=== PATIENT | female | born 1940 | race Caucasian/White ===

== ENCOUNTER 2018-09-16 02:29 | Inpatient (IN) | payer MEDICARE, MEDICAID ==
[2018-09-16 04:01] VITALS: BP 153/78
[2018-09-16] MEDS ORDERED: Maalox 30 mL Cup PO PRN (04:15)
[2018-09-16] MEDS ORDERED: Magnesium Hydroxide (MOM) 30 mL UDC PO PRN (04:15)
[2018-09-16 07:03] LABS: CHOLESTEROL 155 mg/dL (<200); HDL -HIGH DENSITY LIPOPROTEIN 39 mg/dL (23-92); TRIGLYCERIDES 96 mg/dL (<150)
--- NOTE | 2018-09-16 09:05 | History and Physical ---
History of Present Illness - HPI Chief Complaint: psychosis HPI: 78 y/o female who was transferred from [facility] to [facility] for evaluation. Patient was noted by family members to have increased depression and had told a family friend that she no longer wanted to live anymore. She was brought to [facility] for further evaluation and treatment. Patient has a previous history of depression, anxiety, htn, hyperlipidemia. Vital Signs: Last Vital Signs Temp 98.3 F 09/16/18 05:47 Pulse 52 09/16/18 05:47 Resp 18 09/16/18 05:47 BP 123/67 09/16/18 05:47 Pulse Ox 98 09/16/18 05:47 Past Medical History Cardiovascular: Report: HTN, Hyperlipidemia Pulmonary: Report: No Pertinent Hx ANTIC[employer]ING [employer]ER: Report: No Pertinent Hx GI: Report: No Pertinent Hx Psych: Report: Anxiety, Depression Musculoskeletal: Report: No Pertinent Hx Rheumatologic: Report: No pertinent Hx Infectious Disease: Report: No Pertinent Hx Renal/: Report: No Pertinent Hx Endocrine: Report: No Pertinent Hx Dermatology: Report: No Pertinent Hx - Past Surgical History Past Surgical History: No pertinent Hx Family Medical History - Family Member Mother History Unknown: Yes Social History Smoke: No Alcohol: None Drugs: None Lives: With Family - Medications Home Medications: Home Medication Medication Instructions Recorded Type Acetaminophen [Tylenol] 650 mg PO Q4HR PRN 09/16/18 History Amlodipine Besylate [Norvasc] 2.5 mg PO DAILY 09/16/18 History Escitalopram Oxalate [Lexapro] 10 mg PO DAILY 09/16/18 History Hydrocodone/Acetaminophen [[place] 1 tab PO Q4HR PRN 09/16/18 History 7.5-325 Tablet] Lorazepam 1 mg PO BID 09/16/18 History Pantoprazole [Protonix] 40 mg PO DAILY 09/16/18 History Pravastatin Sodium 20 mg PO HS 09/16/18 History - Allergies Allergies/Adverse Reactions: Allergies Allergy/AdvReac Type Severity Reaction Status Date / Time atorvastatin Allergy Verified 09/16/18 04:00 calcium Allergy Verified 09/16/18 04:00 ciprofloxacin [From Cipro] Allergy Verified 09/16/18 04:00 codeine Allergy Verified 09/16/18 04:00 morphine Allergy Verified 09/16/18 04:00 Penicillins Allergy Verified 09/16/18 04:00 sulfamethoxazole Allergy Verified 09/16/18 04:00 [From Bactrim] trimethoprim [From Bactrim] Allergy Verified 09/16/18 04:00 Review of Systems - Review of Systems Constitutional: Report: No Significant Eyes: Report: No Significant ENT: Report: No Significant Respiratory: Report: No Significant Cardiovascular: Report: No Significant Gastrointestinal: Report: No Significant Genitourinary: Report: No Significant Musculoskeletal: Report: No Significant Skin: Report: No Significant Neurological: Report: No Significant Physical Exam - Physical Exam HEENT: Report: Ears Nose Throat within normal limits, Pharnyx within normal limits Neck: Report: Within normal limits Cardiovascular Systems: Report: +s1/s2 noted, Regular, Rate and Rhythm Abdomen: Report: Non-tender to palpation, Tender to palpation Back: Report: Inspection of back is within normal limits. Extremities: Report: Non-tender to palpation. Skin: Report: Color of skin is within normal limits Neuro/Psych: Report: Mood affect is within normal limits - Lab Results All Lab Results last 24 hours: Laboratory Results - last 24 hr 09/16/18 09/16/18 03:42 06:00 POC Glucose 103 Triglycerides 96 Cholesterol 155 LDL Cholesterol Direct 96 HDL Cholesterol 39 - Assessment Assessment: psychosis hypertension hyperlipidemia - Plan Plan: continue current treatment.
[2018-09-16] MEDS ORDERED: ACETAMINOPHEN PO PRN (20:22)
[2018-09-16] MEDS ORDERED: HYDROCODONE PO PRN (20:22)
[2018-09-16] MEDS ORDERED: Hydrocodone/APAP 5mg/325mg Tab PO PRN (20:26)
[2018-09-16 21:59] LABS: CHOLESTEROL 154 mg/dL (<200); HDL -HIGH DENSITY LIPOPROTEIN 41 mg/dL (23-92); TRIGLYCERIDES 96 mg/dL (<150)
--- NOTE | 2018-09-16 23:53 | Psychiatric Evaluation ---
DATE OF SERVICE: 09/16/2018 IDENTIFYING DATA: The patient is a 78-year-old living with her family. Information obtained by directly interviewing the patient as well as reviewing the admission papers and they are reliable. JUSTIFICATION OF HOSPITALIZATION: The patient is admitted on 5150 as a danger to self. CHIEF COMPLAINT: "I was feeling depressed because my was in the hospital, but I never wanted to kill myself. They are making a mistake." HISTORY OF PRESENT ILLNESS: This is a first psychiatric hospitalization to the [facility] for this patient who is known to me from the outpatient treatment. The patient has been diagnosed to have major depressive disorder with anxiety symptoms and has been followed up by me for the past couple of years. The patient is reporting that she fell down and sustained injury to her shoulder and she was in the hospital for a couple of months. The patient is stating that lately she has been feeling frustrated with her being in the hospital and could not figure it out what she could do and she has reported to have mentioned that she wanted to end her life and hence the patient has been placed on 5150 and admitted over here for stabilization, but during the interview, the patient is stating that she never mentioned that she wanted to kill herself. The patient is tearful and crying. PAST PSYCHIATRIC HISTORY: Please refer to the above. MEDICAL HISTORY: Physical examination requested to be done by Dr. San. SUBSTANCE ABUSE HISTORY: None. PHYSICAL AND SEXUAL ABUSE HISTORY: None. LEGAL PROBLEMS: None at this time. STRENGTH AND ASSETS: The patient is motivated. MENTAL STATUS EXAMINATION: The patient is a 78-year-old, looking her stated age, superficially cooperative. Eye contact is noted to be poor. Mood is noted to be depressed. The patient's insight and judgment at this time are noted to be still impaired. Impulse control is noted to be limited. Coping skills are noted to be limited. The patient has been having difficult time to cope with the stress. The patient has voiced suicidal ideation, but no clear plans are voiced at this time. No homicidal ideation is noted. DIAGNOSTIC IMPRESSION: Major depressive disorder, recurrent with anxiety symptoms. PLAN: To continue the patient with the supportive therapy and followup. [facility]# [id number]
[2018-09-17] MEDS: Pantoprazole 40 mg/Packet PO SCH (06:53)
--- NOTE | 2018-09-17 08:54 | General Progress Note ---
Subjective - Review of Systems Service Date: 09/17/18 Subjective: Patient complaining of upper extremity pain. States that she takes tramadol for discomfort. Patient is otherwise awake, alert, but confused. PE VS T 97.9 P63 R19 BP 128/70 Objective - Results Recent Labs: Laboratory Last Values POC Glucose 103 MG/DL (70 - 105) 09/16/18 03:42 Triglycerides 96 mg/dL (<150) 09/16/18 09:45 Cholesterol 154 mg/dL (<200) 09/16/18 09:45 LDL Cholesterol Direct 96 mg/dL (75-193) 09/16/18 09:45 HDL Cholesterol 41 mg/dL (23-92) 09/16/18 09:45 - Physical Exam Vitals and I&O: Vital Signs Temp 97.9 F 09/17/18 06:08 Pulse 63 09/17/18 06:08 Resp 19 09/17/18 06:08 BP 128/70 09/17/18 06:08 Pulse Ox 98 09/17/18 06:08 Intake & Output 09/16/18 09/17/18 09/17/18 18:59 06:59 18:59 Intake Total 1500 480 Balance 1500 480 Intake: Oral 1500 480 Other: # Voids 3 1 # Bowel Movements 0 Active Medications: Current Medications Acetaminophen (Tylenol) 650 mg PO Q4HR PRN PRN Reason: Pain (Mild) Stop: 11/15/18 04:20 Last Admin: 09/17/18 00:47 Dose: 650 mg Al Hydrox/Mg Hydrox/Simethicone (Maalox) 30 ml PO Q4HR PRN PRN Reason: GI DISTRESS Stop: 11/15/18 04:14 Amlodipine Besylate (Norvasc) 2.5 mg PO DAILY [facility] Stop: 11/16/18 08:59 Escitalopram Oxalate (Lexapro) 10 mg PO DAILY [facility]; Protocol Stop: 11/15/18 08:59 Last Admin: 09/16/18 09:19 Dose: 10 mg Lorazepam (Ativan) 0.5 mg PO Q6HR PRN; Protocol PRN Reason: Anxiety Stop: 11/15/18 18:54 Magnesium Hydroxide (Milk Of Magnesia) 30 ml PO HS PRN PRN Reason: Constipation Pantoprazole Sodium (Protonix) 40 mg PO QDAC [facility] Stop: 11/16/18 07:29 Last Admin: 09/17/18 06:53 Dose: 40 mg Simvastatin (Zocor) 10 mg PO HS [facility] Stop: 11/16/18 20:59 Tramadol HCl (Ultram) 50 mg PO BID PRN PRN Reason: Pain (Severe) Stop: 11/16/18 08:45 Trimethoprim/Sulfamethoxazole (Bactrim Ds) 1 tab PO BID [facility] Stop: 09/24/18 08:59 Zolpidem Tartrate (Ambien) 5 mg PO HS PRN PRN Reason: Insomnia Stop: 11/15/18 04:14 Last Admin: 09/16/18 20:49 Dose: 5 mg General: Alert, No acute distress HEENT: Atraumatic, PERRLA, EOMI Neck: Supple Cardiovascular: Regular rate, Normal S1, Normal S2 Lungs: Clear to auscultation Abdomen: Bowel sounds Extremities: no Clubbing, no Cyanosis, no Edema Assessment/Plan - Assessment Assessment: psychosis hypertension hyperlipidemia shoulder pain UTI - Plan Plan: continue current treatment. add tramadol 50mg PO BID SONIYA Saavedra start on Bactrim DS
[2018-09-17] MEDS ORDERED: AMLODIPINE BESYLATE 2.5 MG PO SCH (09:00)
[2018-09-17] MEDS: Sulfamethoxazole/TMP 800/160mg Tab PO SCH ×2 (09:03→16:35)
--- NOTE | 2018-09-17 22:08 | Progress Notes ---
DATE: 09/17/2018 SUBJECTIVE: Staff was spoken to. The patient is interviewed. The patient's primary care physician, Dr. Snider has been spoken to. The patient is reported to have been using the bromazepam and reported to have fallen down and sustained injury to her right shoulder area and was in the long term facility almost for 45 days. The patient's is down with the stroke and is also locked up at [facility]. The patient has been advised to be there in a long term facility, but the patient is refusing to do so. The patient does not have any support and her son-in-law and daughter does not want to be involved with the patient's care and the patient has no other help. There is an APS report that has been generated and the patient and the casework specialist has been informed of the same and the patient has been advised to look for placement, but the patient is very reluctant to do so at this time. ASSESSMENT: The patient is still depressed. PLAN: To continue the patient with the supportive therapy, encouraged the patient to verbalize the concerns rather than to act out. JOB# [id number]
--- NOTE | 2018-09-18 01:19 | Consultation ---
DATE OF CONSULTATION: 09/17/2018 REFERRING PHYSICIAN: Nav Rodriguez MD TYPE OF CONSULTATION: Psychology. HISTORY OF PRESENT ILLNESS: The patient is a 78-year-old female. The following is by review of the medical record as well as by the patient's self-report. According to record review, the patient is being admitted on a 5150 as danger to self. The record indicates the patient had been taken to [facility] for evaluation and treatment after a fall. The patient has a history of depression and anxiety. According to the record, the patient had mentioned that she did not want to live any longer and therefore, the patient was transferred here to [facility] on the Geropsych unit. The patient is reporting that her has been in the hospital for a couple of months and she was feeling frustrated and was unable to cope and continued to live at home. She stated she was experiencing increased depression. The patient had mentioned to her friend that she wanted to end her life; however, no plan or means were stated by the patient. The patient presents with a labile mood as well as tearful. The patient is stating currently that she did not mention that she wanted to end her life and is denying any suicidal ideation, plan or intention. PAST MEDICAL HISTORY: Please see history and physical by Dr. San. PAST PSYCHIATRIC HISTORY: The patient has been under the care of Dr. Rodriguez on an outpatient basis for the last 2 years for depression. The patient has no previous psychiatric hospitalization. This is the first hospitalization for her. SUBSTANCE ABUSE HISTORY: The patient denies any history of alcohol, tobacco or illicit drug use. However, the patient was unclear about history of alcohol use and it is noted that there may have been alcohol use connected to this current hospitalization. PSYCHOSOCIAL HISTORY: The patient is and lives at home with her . The patient has no children. She did not answer questions about episcopalian affiliation or occupational or educational history. The patient continued to state that she was frustrated with her not being home since he has been hospitalized. The patient states that she had a fall at home and sustained an injury to her right shoulder. The patient expects to return home. MENTAL STATUS EXAMINATION: The patient appears to be her stated age. The patient's attitude is superficially cooperative. Eye contact is fair to poor. Speech is spontaneous. However, the patient is tearful and crying intermittently. Mood is depressed. Affect is labile. Thought process is depressogenic, however logical and linear. The patient denied any auditory or visual hallucinations or any delusions. There is no evidence of paranoid ideation. The patient denied any suicidal ideation, plan or intention. However, the record indicates the patient had mentioned to her friend that she wanted to end her life. The patient's behavior has been withdrawn on the unit. Impulse control is limited. Concentration is fair to poor. However, the patient did not follow through with serial 3 subtractions. The patient did not participate in the memory assessment. Immediate memory seems to be intact. Short term and long-term memory need further evaluation. Sensorium is alert and oriented to person and place but not date or time. The patient did not participate in the interpretation of proverbs. Insight is poor. Judgment is compromised. DIAGNOSTIC IMPRESSION: AXIS I: History of Major depressive disorder, recurrent, severe with anxiety. AXIS II: Deferred. AXIS III: Please see history and physical by Dr. San. TREATMENT PLAN: The patient has been seen by Dr. Rodriguez for psychiatric evaluation and for the management of the patient's psychotropic medications. We will provide supportive psychotherapy to include reality orientation, differentiation and integration. We will provide cognitive behavioral therapy for the patient's depression. We will encourage the patient to be able to verbalize her concerns. We will provide an anxiety reduction skill and stress management. We will encourage the patient to verbally contract for safety and no self-harm. We will provide coping strategies for phase of life issues as well. Thank you Dr. Rodriguez, for this consult and the opportunity to participate in this patient's care. JOB# [id number] MTDD
[2018-09-18] MEDS: Pantoprazole 40 mg/Packet PO SCH (06:31)
--- NOTE | 2018-09-18 08:59 | General Progress Note ---
Subjective - Review of Systems Service Date: 09/18/18 Subjective: Patient complaining of upper extremity pain. States that she takes tramadol for discomfort. Patient is otherwise awake, alert, but confused. Patient has a history of seizure disorder and is currently taking Keppra. Will add to current medication list. PE VS T 97.6 P67 R19 BP 130/75 Objective - Results Recent Labs: Laboratory Last Values POC Glucose 103 MG/DL (70 - 105) 09/16/18 03:42 Triglycerides 96 mg/dL (<150) 09/16/18 09:45 Cholesterol 154 mg/dL (<200) 09/16/18 09:45 LDL Cholesterol Direct 96 mg/dL (75-193) 09/16/18 09:45 HDL Cholesterol 41 mg/dL (23-92) 09/16/18 09:45 - Physical Exam Vitals and I&O: Vital Signs Temp 97.6 F 09/17/18 19:43 Pulse 67 09/17/18 19:43 Resp 19 09/17/18 19:43 BP 130/75 09/17/18 19:43 Pulse Ox 98 09/17/18 19:43 Active Medications: Current Medications Acetaminophen (Tylenol) 650 mg PO Q4HR PRN PRN Reason: Pain (Mild) Stop: 11/15/18 04:20 Last Admin: 09/17/18 16:35 Dose: 650 mg Al Hydrox/Mg Hydrox/Simethicone (Maalox) 30 ml PO Q4HR PRN PRN Reason: GI DISTRESS Stop: 11/15/18 04:14 Last Admin: 09/17/18 11:45 Dose: 30 ml Amlodipine Besylate (Norvasc) 2.5 mg PO DAILY [facility] Stop: 11/16/18 08:59 Last Admin: 09/17/18 09:03 Dose: 2.5 mg Escitalopram Oxalate (Lexapro) 10 mg PO DAILY ARVIN; Protocol Stop: 11/15/18 08:59 Last Admin: 09/17/18 09:04 Dose: 10 mg Levetiracetam (Keppra) 500 mg PO BID [facility] Stop: 11/16/18 12:34 Last Admin: 09/17/18 16:35 Dose: 500 mg Lorazepam (Ativan) 0.5 mg PO Q6HR PRN; Protocol PRN Reason: Anxiety Stop: 11/15/18 18:54 Last Admin: 09/17/18 11:45 Dose: 0.5 mg Magnesium Hydroxide (Milk Of Magnesia) 30 ml PO HS PRN PRN Reason: Constipation Mirtazapine (Remeron) 7.5 mg PO HS ARVIN; Protocol Stop: 11/16/18 20:59 Last Admin: 09/17/18 20:35 Dose: 7.5 mg Pantoprazole Sodium (Protonix) 40 mg PO QDAC [facility] Stop: 11/16/18 07:29 Last Admin: 09/18/18 06:31 Dose: Not Given Simvastatin (Zocor) 10 mg PO HS [facility] Stop: 11/16/18 20:59 Last Admin: 09/17/18 20:48 Dose: 10 mg Tramadol HCl (Ultram) 50 mg PO BID PRN PRN Reason: Pain (Severe) Stop: 11/16/18 08:45 Last Admin: 09/18/18 00:10 Dose: 50 mg Trimethoprim/Sulfamethoxazole (Bactrim Ds) 1 tab PO BID [facility] Stop: 09/24/18 08:59 Last Admin: 09/17/18 16:35 Dose: 1 tab Zolpidem Tartrate (Ambien) 5 mg PO HS PRN PRN Reason: Insomnia Stop: 11/15/18 04:14 Last Admin: 09/18/18 00:10 Dose: 5 mg General: Alert, No acute distress HEENT: Atraumatic, PERRLA, EOMI Neck: Supple Cardiovascular: Regular rate, Normal S1, Normal S2 Lungs: Clear to auscultation Abdomen: Bowel sounds Extremities: no Clubbing, no Cyanosis, no Edema Assessment/Plan - Assessment Assessment: psychosis hypertension hyperlipidemia shoulder pain UTI seizure disorder - Plan Plan: continue current treatment. add tramadol 50mg PO BID DC [place] start on Bactrim DS add Keppra
[2018-09-18] MEDS: Sulfamethoxazole/TMP 800/160mg Tab PO SCH ×2 (09:03→16:41)
--- NOTE | 2018-09-18 13:13 | Progress Notes ---
DATE: 09/18/2018 SUBJECTIVE: Staff was spoken to. The patient is interviewed. Mood is noted to be irritable. Affect is constricted. The patient is demanding that she should be discharged. The patient has no insight into her illness and did get to speak to the primary care physician. He is worried that the patient is going to be getting hurt and the patient has been informed on this, and the patient's wrapper caser has been informed with regards finding a high bedtime worker in-home support services for the patient and plan to discharge the patient after that. ASSESSMENT: The patient is still impulsive and depressed. PLAN: To continue the patient with the Lexapro and escitalopram, and continue the patient with the supportive therapy and followup. The patient has been provided with the option of going to the [facility] close to her . The patient has been refusing. JOB# [id number]
[2018-09-19] MEDS: Pantoprazole 40 mg/Packet PO SCH (06:42)
[2018-09-19] MEDS: Sulfamethoxazole/TMP 800/160mg Tab PO SCH ×2 (08:23→16:13)
--- NOTE | 2018-09-19 08:48 | General Progress Note ---
Subjective - Review of Systems Service Date: 09/19/18 Subjective: Patient complaining of upper extremity pain. States that she takes tramadol for discomfort. Patient is otherwise awake, alert, but confused. Patient has a history of seizure disorder and is currently taking Keppra. Will add to current medication list. PE VS T 98.1 P62 R18 BP 121/73 Objective - Results Recent Labs: Laboratory Last Values POC Glucose 103 MG/DL (70 - 105) 09/16/18 03:42 Triglycerides 96 mg/dL (<150) 09/16/18 09:45 Cholesterol 154 mg/dL (<200) 09/16/18 09:45 LDL Cholesterol Direct 96 mg/dL (75-193) 09/16/18 09:45 HDL Cholesterol 41 mg/dL (23-92) 09/16/18 09:45 - Physical Exam Vitals and I&O: Vital Signs Temp 98.1 F 09/19/18 05:00 Pulse 68 09/19/18 08:23 Resp 18 09/19/18 05:00 BP 121/73 09/19/18 08:23 Pulse Ox 96 09/19/18 05:00 Intake & Output 09/18/18 09/19/18 09/19/18 18:59 06:59 18:59 Intake Total 480 Balance 480 Intake: Oral 480 Other: # Voids 2 Active Medications: Current Medications Acetaminophen (Tylenol) 650 mg PO Q4HR PRN PRN Reason: Pain (Mild) Stop: 11/15/18 04:20 Last Admin: 09/18/18 23:52 Dose: 650 mg Al Hydrox/Mg Hydrox/Simethicone (Maalox) 30 ml PO Q4HR PRN PRN Reason: GI DISTRESS Stop: 11/15/18 04:14 Last Admin: 09/17/18 11:45 Dose: 30 ml Amlodipine Besylate (Norvasc) 2.5 mg PO DAILY [facility] Stop: 11/16/18 08:59 Last Admin: 09/19/18 08:23 Dose: 2.5 mg Escitalopram Oxalate (Lexapro) 10 mg PO DAILY [facility]; Protocol Stop: 11/15/18 08:59 Last Admin: 09/19/18 08:23 Dose: 10 mg Levetiracetam (Keppra) 500 mg PO BID [facility] Stop: 11/16/18 12:34 Last Admin: 09/19/18 08:23 Dose: 500 mg Lorazepam (Ativan) 0.5 mg PO Q6HR PRN; Protocol PRN Reason: Anxiety Stop: 11/15/18 18:54 Last Admin: 09/18/18 12:20 Dose: 0.5 mg Magnesium Hydroxide (Milk Of Magnesia) 30 ml PO HS PRN PRN Reason: Constipation Mirtazapine (Remeron) 7.5 mg PO HS [facility]; Protocol Stop: 11/16/18 20:59 Last Admin: 09/18/18 20:54 Dose: 7.5 mg Pantoprazole Sodium (Protonix) 40 mg PO QDAC [facility] Stop: 11/16/18 07:29 Last Admin: 09/19/18 06:42 Dose: 40 mg Simvastatin (Zocor) 10 mg PO HS [facility] Stop: 11/16/18 20:59 Last Admin: 09/18/18 20:54 Dose: 10 mg Tramadol HCl (Ultram) 50 mg PO BID PRN PRN Reason: Pain (Severe) Stop: 11/16/18 08:45 Last Admin: 09/18/18 16:41 Dose: 50 mg Trimethoprim/Sulfamethoxazole (Bactrim Ds) 1 tab PO BID [facility] Stop: 09/24/18 08:59 Last Admin: 09/19/18 08:23 Dose: 1 tab Zolpidem Tartrate (Ambien) 5 mg PO HS PRN PRN Reason: Insomnia Stop: 11/15/18 04:14 Last Admin: 09/18/18 20:55 Dose: 5 mg General: Alert, No acute distress HEENT: Atraumatic, PERRLA, EOMI Neck: Supple Cardiovascular: Regular rate, Normal S1, Normal S2 Lungs: Clear to auscultation Abdomen: Bowel sounds Extremities: no Clubbing, no Cyanosis, no Edema Assessment/Plan - Assessment Assessment: psychosis hypertension hyperlipidemia shoulder pain UTI seizure disorder - Plan Plan: continue current treatment. add tramadol 50mg PO BID DC [place] start on Bactrim DS add Keppra
--- NOTE | 2018-09-20 05:44 | General Progress Note ---
Subjective - Review of Systems Service Date: 09/20/18 Subjective: Patient complaining of upper extremity pain. States that she takes tramadol for discomfort. Patient is otherwise awake, alert, but confused. Patient has a history of seizure disorder and is currently taking Keppra. Will add to current medication list. PE VS T 98.2 P70 R19 BP 112/63 Objective - Results Recent Labs: Laboratory Last Values POC Glucose 103 MG/DL (70 - 105) 09/16/18 03:42 Triglycerides 96 mg/dL (<150) 09/16/18 09:45 Cholesterol 154 mg/dL (<200) 09/16/18 09:45 LDL Cholesterol Direct 96 mg/dL (75-193) 09/16/18 09:45 HDL Cholesterol 41 mg/dL (23-92) 09/16/18 09:45 - Physical Exam Vitals and I&O: Vital Signs Temp 98.2 F 09/19/18 20:00 Pulse 70 09/19/18 20:00 Resp 19 09/19/18 20:00 BP 112/63 09/19/18 20:00 Pulse Ox 97 09/19/18 20:00 Intake & Output 09/19/18 09/19/18 09/20/18 06:59 18:59 06:59 Intake Total 480 Balance 480 Intake: Oral 480 Other: # Voids 2 Active Medications: Current Medications Acetaminophen (Tylenol) 650 mg PO Q4HR PRN PRN Reason: Pain (Mild) Stop: 11/15/18 04:20 Last Admin: 09/20/18 01:15 Dose: 650 mg Al Hydrox/Mg Hydrox/Simethicone (Maalox) 30 ml PO Q4HR PRN PRN Reason: GI DISTRESS Stop: 11/15/18 04:14 Last Admin: 09/17/18 11:45 Dose: 30 ml Amlodipine Besylate (Norvasc) 2.5 mg PO DAILY [facility] Stop: 11/16/18 08:59 Last Admin: 09/19/18 08:23 Dose: 2.5 mg Escitalopram Oxalate (Lexapro) 10 mg PO DAILY [facility]; Protocol Stop: 11/15/18 08:59 Last Admin: 09/19/18 08:23 Dose: 10 mg Levetiracetam (Keppra) 500 mg PO BID [facility] Stop: 11/16/18 12:34 Last Admin: 09/19/18 16:13 Dose: 500 mg Lorazepam (Ativan) 0.5 mg PO Q6HR PRN; Protocol PRN Reason: Anxiety Stop: 11/15/18 18:54 Last Admin: 09/19/18 16:13 Dose: 0.5 mg Magnesium Hydroxide (Milk Of Magnesia) 30 ml PO HS PRN PRN Reason: Constipation Mirtazapine (Remeron) 7.5 mg PO HS [facility]; Protocol Stop: 11/16/18 20:59 Last Admin: 09/19/18 20:43 Dose: 7.5 mg Pantoprazole Sodium (Protonix) 40 mg PO QDAC [facility] Stop: 11/16/18 07:29 Last Admin: 09/19/18 06:42 Dose: 40 mg Simvastatin (Zocor) 10 mg PO HS [facility] Stop: 11/16/18 20:59 Last Admin: 09/19/18 20:43 Dose: 10 mg Tramadol HCl (Ultram) 50 mg PO BID PRN PRN Reason: Pain (Severe) Stop: 11/16/18 08:45 Last Admin: 09/19/18 22:40 Dose: 50 mg Trimethoprim/Sulfamethoxazole (Bactrim Ds) 1 tab PO BID [facility] Stop: 09/24/18 08:59 Last Admin: 09/19/18 16:13 Dose: 1 tab Zolpidem Tartrate (Ambien) 5 mg PO HS PRN PRN Reason: Insomnia Stop: 11/15/18 04:14 Last Admin: 09/19/18 20:43 Dose: 5 mg General: Alert, No acute distress HEENT: Atraumatic, PERRLA, EOMI Neck: Supple Cardiovascular: Regular rate, Normal S1, Normal S2 Lungs: Clear to auscultation Abdomen: Bowel sounds Extremities: no Clubbing, no Cyanosis, no Edema Assessment/Plan - Assessment Assessment: psychosis hypertension hyperlipidemia anxiety/depression seizure disorder right shoulder pain UTI GERD Insomnia - Plan Plan: continue current treatment. add tramadol 50mg PO BID [facility] [place] start on Bactrim DS add Keppra
[2018-09-20] MEDS: Pantoprazole 40 mg/Packet PO SCH (06:41)
[2018-09-20] MEDS: Sulfamethoxazole/TMP 800/160mg Tab PO SCH (08:26)
--- NOTE | 2018-09-20 11:06 | Progress Notes ---
DATE: 09/19/2018 SUBJECTIVE: Staff was spoken to. The patient is interviewed. Mood is noted to be irritable. Affect is constricted. The patient is very argumentative and stating that she needs to go and take care of her . The patient's coping skills at this time are noted to be very poor. No side effects to the medications are noted. ASSESSMENT: The patient is still depressed. PLAN: To continue the patient with the supportive therapy. I encouraged the patient to verbalize the concerns rather than to act out. [facility]# [id number]
--- NOTE | 2018-09-20 21:46 | Progress Notes ---
DATE: 09/20/2018 PSYCHIATRIC PROGRESS NOTE SUBJECTIVE: Staff was spoken to. The patient is interviewed. Mood is noted to be irritable. Affect is constricted. The patient is stating that she is not suicidal or homicidal. The patient is stating that her is dying with a cancer, she needs to be there by his bedside rather than being locked up in here. The patient is stating that she has a friend that can keep an eye on her. Last night, her friend, Merle, came to visit and I met with her and the friend is stating that she is going to be keeping an eye on the patient for a couple of days and the patient is also stating that she is going to be renting a room from someone and she is going to be having some company. ASSESSMENT: The patient is stabilizing, not suicidal. PLAN: To continue the patient with the supportive therapy, encouraged the patient to verbalize the concerns rather than to act out. Once the adoption social worker has been able to line up the SS worker and clear with the EPS, the patient is going to be discharged. JOB# [id number]
== END 2018-09-20 15:30 | disposition home or self-care (01) | DRG 885 ==
LOC: GERO2 02:29
PROVIDERS: ADMIT Psychiatry & Neurology Psychiatry; ATTEND Psychiatry & Neurology Psychiatry
DX: F33.2 Major depressive disorder, recurrent severe without psychotic features (principal); N39.0 Urinary tract infection, site not specified; I10 Essential (primary) hypertension; E78.5 Hyperlipidemia, unspecified; F41.9 Anxiety disorder, unspecified; F29 Unspecified psychosis not due to a substance or known physiological condition; G40.909 Epilepsy, unspecified, not intractable, without status epilepticus; K21.9 Gastro-esophageal reflux disease without esophagitis; G47.00 Insomnia, unspecified; M25.511 Pain in right shoulder; Z79.899 Other long term (current) drug therapy; Z88.5 Allergy status to narcotic agent; Z88.0 Allergy status to penicillin; Z88.2 Allergy status to sulfonamides; Z88.8 Allergy status to other drugs, medicaments and biological substances
CPT/HCPCS: 36415-UA; 80061-TC; 82948-90; 83036-90; Z7610